=== PATIENT | male | born 1995 | race Caucasian/White ===

== ENCOUNTER 2017-07-07 01:06 | Emergency (ER) | payer SELFPAY ==
[2017-07-07 01:28] LABS: MUDS CUTOFF CONCENTRATIONS CUTOFF CONC BELOW:
[2017-07-07 01:40] LABS: BILIRUBIN,URINE NEGATIVE (NEGATIVE); GLUCOSE, URINE (UA) NEGATIVE (NEGATIVE); KETONES,URINE (UA) NEGATIVE (NEGATIVE); LEUKOCYTE ESTERASE, URINE NEGATIVE (NEGATIVE); NITRITE,URINE NEGATIVE (NEGATIVE); OCCULT BLOOD,URINE NEGATIVE (NEGATIVE); PROTEIN,URINE NEGATIVE (NEGATIVE); UROBILINOGEN,URINE 1 (NORMAL) E.U./dL (NORMAL)
[2017-07-07 01:41] LABS: CLARITY,URINE CLEAR (CLEAR)
[2017-07-07 01:42] LABS: BASOPHILS % (AUTO) 0.7 %; EOSINOPHILS # (AUTO) 0.1 10^3/uL (0.0-0.7); EOSINOPHILS % (AUTO) 1.4 %; HGB - HEMOGLOBIN 14.2 g/dL (14.0-18.0); LYMPHOCYTES % (AUTO) 45.1 %; MEAN CORPUSCULAR HEMOGLOBIN 28.4 pg (27.0-31.0); MEAN CORPUSCULAR HGB CONC 34.8 g/dL (32.0-36.0); MEAN CORPUSCULAR VOLUME 81.6 fL (80.0-94.0); MEAN PLATELET VOLUME 6.7 fL (7.4-11.4); MONOCYTES # (AUTO) 0.7 10^3/uL (0.0-1.0); MONOCYTES % (AUTO) 10.5 %; NEUTROPHILS # (AUTO) 2.8 10^3/uL (1.5-6.6); NEUTROPHILS % (AUTO) 42.3 %; PLT - PLATELET COUNT 281 10^3/uL (130-450); RED BLOOD COUNT 4.99 10^6/uL (4.70-6.10); RED CELL DISTRIBUTION WIDTH 12.7 % (12.0-15.0); WHITE BLOOD COUNT 6.7 x10^3/uL (4.8-10.8)
[2017-07-07 01:50] LABS: AMPHETAMINE SCREEN,URINE NEGATIVE (NEGATIVE); BENZODIAZEPINES SCREEN, URINE POSITIVE (NEGATIVE); COCAINE SCREEN URINE NEGATIVE (NEGATIVE); METHADONE SCREEN, URINE NEGATIVE (NEGATIVE); METHAMPHETAMINES SCREEN, URINE NEGATIVE (NEGATIVE); OPIATE SCREEN, URINE NEGATIVE (NEGATIVE); OXYCODONE SCREEN, URINE NEGATIVE (NEGATIVE); PROPOXYPHENE SCREEN, URINE NEGATIVE (NEGATIVE); TRICYCLIC ANTIDEPRESSANT,URINE POSITIVE (NEGATIVE)
[2017-07-07 01:53] LABS: ALBUMIN 4.8 g/dL (3.2-5.5); ALBUMIN/GLOBULIN RATIO 1.5 (1.0-2.2); ALKALINE PHOSPHATASE 62 IU/L (42-121); ALT ALANINE AMINOTRANSFERASE 20 IU/L (10-60); AST ASPARTATE AMINOTRANSFERASE 26 IU/L (10-42); BILIRUBIN,TOTAL 0.4 mg/dL (0.2-1.0); BUN - BLOOD UREA NITROGEN 17 mg/dL (6-20); CALCIUM 9.3 mg/dL (8.5-10.3); CARBON DIOXIDE - CO2 25 mmol/L (21-32); CHLORIDE 99 mmol/L (101-111); CREATININE 0.7 mg/dL (0.6-1.2); GFR - MDRD 141 (>89); GLUCOSE 89 mg/dL (70-100); LIPASE 14 U/L (22-51); SALICYLATE < 6.0 mg/dL; SODIUM 137 mmol/L (135-145); TOTAL PROTEIN 7.9 g/dL (6.7-8.2)
[2017-07-07 01:55] LABS: ACETAMINOPHEN < 10 ug/mL (10-30)
--- NOTE | 2017-07-07 02:43 | ED Physician Documentation ---
History of Present Illness - Stated complaint Stated Complaint: MHE - Chief complaint Chief Complaint: MHE - History obtained from History obtained from: Patient, Family - History of Present Illness Timing: Today - Additonal information Additional information: 21-year-old male with a history of chronic opiate use has previously been in treatment for alcohol and cannabis when he was a teenager. He has been using oxycodone up to 270 mg per day and he has been decreasing his dose and he is now down to 90 mg per day. He has been taking benzodiazepines in addition to the oxycodone to avert the symptoms of withdrawal. This evening he took 30 mg of oxycodone and a bit later took some Xanax. He has not taken Xanax in quite some time and he fell asleep sitting on the floor and he was not arousable by his brother. His family became concerned they were eventually able to get him awake and talk him into coming to the emergency department. The patient states that he is wanting some help with substance abuse. His mother indicates that he has bipolar disorder and she is concerned about overdose and continued substance abuse. She would like to see him in inpatient treatment.The patient denies any suicidal ideation he denies any attempt to overdose and he does admit to depression. He also admits that he took some Seroquel 2 nights ago. Review of Systems Constitutional: denies: Fever, Chills, Myalgias, Fatigue Eyes: denies: Decreased vision Ears: denies: Ear pain, Drainage/discharge Nose: denies: Rhinorrhea / runny nose, Congestion Throat: denies: Sore throat Cardiac: denies: Chest pain / pressure Respiratory: denies: Dyspnea, Cough GI: denies: Abdominal Pain, Nausea, Vomiting, Constipation, Diarrhea : denies: Dysuria, Frequency Skin: denies: Rash Musculoskeletal: denies: Neck pain, Back pain, Extremity pain Neurologic: denies: Generalized weakness, Focal weakness, Headache, Head injury PD PAST MEDICAL HISTORY - Past Medical History Past Medical History: Yes Other Past Medical History: Admitted of Opiod addiction - Past Surgical History Past Surgical History: No - Present Medications Home Medications: Ambulatory Orders Medication Instructions Recorded Confirmed cloNIDine [Catapres] 0.1 mg PO BID #30 tablet 07/07/17 - Allergies Allergies/Adverse Reactions: Allergies Allergy/AdvReac Type Severity Reaction Status Date / Time No Known Drug Allergies Allergy Verified 07/07/17 01:17 - Social History Does the pt smoke?: Yes Smoking Status: Current every day smoker Does the pt drink ETOH?: No Does the pt have substance abuse?: No - Immunizations Immunizations are current?: Yes - POLST Patient has POLST: No PD ED PE NORMAL - Vitals Vital signs reviewed: Yes (Hypertensive mild) - General General: Alert and oriented X 3, No acute distress, Well developed/nourished - HEENT HEENT: Atraumatic, PERRL, EOMI, Ears normal, Moist mucous membranes, Pharynx benign - Neck Neck: Supple, no meningeal sign, No bony TTP - Cardiac Cardiac: RRR, No murmur - Respiratory Respiratory: No respiratory distress, Clear bilaterally - Abdomen Abdomen: Soft, Non tender - Back Back: No CVA TTP, No spinal TTP - Derm Derm: Normal color, Warm and dry, No rash - Extremities Extremities: No deformity, No edema - Neuro Neuro: No motor deficit, No sensory deficit Eye Opening: Spontaneous Motor: Obeys Commands Verbal: Oriented GCS Score: 15 - Psych Psych: Normal mood, Normal affect Results - Vitals Vitals: Vital Signs - 24 hr 07/07/17 01:10 Temperature 36.5 C Heart Rate 98 Respiratory 18 Rate Blood Pressure 144/69 H O2 Saturation 99 Oxygen O2 Source Room air - Labs Labs: Laboratory Tests 07/07/17 07/07/17 07/07/17 01:21 01:30 01:30 WBC 6.7 RBC 4.99 Hgb 14.2 Hct 40.7 L MCV 81.6 MCH 28.4 MCHC 34.8 RDW 12.7 Plt Count 281 MPV 6.7 L Neut # 2.8 Lymph # 3.0 [place] # 0.7 Eos # 0.1 Baso # 0.0 Absolute Nucleated RBC 0.00 Nucleated RBC % 0.0 Sodium 137 Potassium 4.0 Chloride 99 L Carbon Dioxide 25 Anion Gap 13.0 BUN 17 Creatinine 0.7 Estimated GFR (MDRD) 141 Glucose 89 Calcium 9.3 Total Bilirubin 0.4 AST 26 ALT 20 Alkaline Phosphatase 62 Total Protein 7.9 Albumin 4.8 Globulin 3.1 Albumin/Globulin Ratio 1.5 Lipase 14 L Urine Color YELLOW Urine Clarity CLEAR Urine pH 6.0 Ur Specific [place] >=1.030 H Urine Protein NEGATIVE Urine Glucose (UA) NEGATIVE Urine Ketones NEGATIVE Urine Occult Blood NEGATIVE Urine Nitrite NEGATIVE Urine Bilirubin NEGATIVE Urine Urobilinogen 1 (NORMAL) Ur Leukocyte Esterase NEGATIVE Ur Microscopic Review NOT INDICATED Urine Culture Comments NOT INDICATED Salicylates < 6.0 Urine Opiates Screen NEGATIVE Ur Oxycodone Screen NEGATIVE Urine Methadone Screen NEGATIVE Ur Propoxyphene Screen NEGATIVE Acetaminophen < 10 L Ur Barbiturates Screen NEGATIVE Ur Tricyclics Screen POSITIVE H Ur Phencyclidine Scrn NEGATIVE Ur Amphetamine Screen NEGATIVE U Methamphetamines Scrn NEGATIVE U Benzodiazepines Scrn POSITIVE H Urine Cocaine Screen NEGATIVE U Cannabinoids Screen POSITIVE H Ethyl Alcohol < 5.0 PD MEDICAL DECISION MAKING - ED course Complexity details: reviewed old records, reviewed results, re-evaluated patient , considered differential, d/w patient, d/w family ED course: 21-year-old male who has narcotic addiction has been in previous treatment and is asking today for help. He does not want to stay in the emergency department overnight to talk to social work. He is willing to go to the clinic to attempt to get help there and indicates she will return to the emergency department if he is unable to get into the clinic. He denies any suicidal ideation and denies any self-harm. Departure - Departure Disposition: 01 Home, Self Care Clinical Impression: Substance abuse Condition: Stable Instructions: ED Drug Abuse General, ED Withdrawal Narcotic, ED Depression Follow-Up: [facility] [Provider Group] Prescriptions: cloNIDine [Catapres] 0.1 mg PO BID #30 tablet
[2017-07-07 02:52] VITALS: BP 132/65
== END 2017-07-07 02:52 | disposition home or self-care (01) ==
LOC: EEVIPCON 01:06 → ED 01:06
DX: F11.10 Opioid abuse, uncomplicated (principal); F17.200 Nicotine dependence, unspecified, uncomplicated
CPT/HCPCS: 80053; 80306; 80307; 80320; 80329; 81001; 81003; 83690; 85025; 87086; 99283; 99284

== ENCOUNTER 2017-07-22 19:35 | Outpatient (CLI) | payer OTHER | END 2017-07-22 19:36 | disposition home or self-care (01) | LOC: LAB 19:35 | PROVIDERS: ATTEND Pathology Blood Banking & Transfusion Medicine | DX: Z01.89 Encounter for other specified special examinations (principal) | CPT/HCPCS: 36415 ==

== ENCOUNTER 2017-12-19 13:40 | Outpatient (CLI) | payer MEDICAID | END 2017-12-19 13:41 | disposition critical access hospital (66) | LOC: EMS 13:40 | PROVIDERS: ATTEND Surgery | DX: R11.2 Nausea with vomiting, unspecified (principal) | CPT/HCPCS: A0425; A0427 ==

== ENCOUNTER 2017-12-19 14:00 | Emergency (ER) | payer MEDICAID ==
--- NOTE | 2017-12-19 14:16 | ED Physician Documentation ---
PD HPI ALTERED MENTAL STATUS - Stated complaint Stated Complaint: CONFUSION - Chief complaint Chief Complaint: Neuro - History obtained from History obtained from: Patient, EMS - History of Present Illness Timing - onset: Chronic Quality / character: Confused, Disoriented Associated symptoms: No: Fever, Headache, Stiff neck, Dyspnea Basline status: Alert and oriented X 3 - Additional information Additional information: Patient is a 21-year-old male with a long-standing history of polysubstance abuse including fentanyl, methadone, methamphetamines, amphetamines and marijuana. He apparently accidentally overdosed today at home and required a Narcan with EMS. He has been seen at [facility] on the and earlier this morning for same. They were trying to get him in to [facility], but no beds were available. He is currently awake and alert in the emergency department. He states that he last used methamphetamines last night. He denies any suicidal or homicidal ideation to me. Review of Systems Unable to obtain: Confused Constitutional: denies: Fever, Chills Ears: denies: Ear pain Nose: denies: Rhinorrhea / runny nose, Congestion GI: denies: Nausea, Vomiting, Diarrhea Skin: denies: Rash Musculoskeletal: denies: Neck pain, Back pain Neurologic: reports: Confused. denies: Focal weakness, Numbness, Headache PD PAST MEDICAL HISTORY - Past Medical History Past Medical History: No - Past Surgical History Past Surgical History: No - Present Medications Home Medications: Ambulatory Orders Medication Instructions Recorded Confirmed cloNIDine [Catapres] 0.1 mg PO BID #30 tablet 07/07/17 - Allergies Allergies/Adverse Reactions: Allergies Allergy/AdvReac Type Severity Reaction Status Date / Time No Known Drug Allergies Allergy Verified 12/19/17 14:10 - Living Situation Living Situation: reports: With family Living Arrangement: reports: At home - Social History Does the pt smoke?: Yes Smoking Status: Current every day smoker Does the pt drink ETOH?: No Does the pt have substance abuse?: Yes Substance Use and Type: Marijuana, Meth, Prescription Pills - Immunizations Immunizations are current?: Yes - POLST Patient has POLST: No PD ED PE NORMAL - Vitals Vital signs reviewed: Yes - General General: No acute distress, Well developed/nourished, Other (Alert, oriented to person and place only) - HEENT HEENT: PERRL, EOMI, Moist mucous membranes, Pharynx benign - Neck Neck: Supple, no meningeal sign, No bony TTP - Cardiac Cardiac: RRR, Strong equal pulses - Respiratory Respiratory: No respiratory distress, Clear bilaterally - Abdomen Abdomen: Soft, Non tender, Non distended - Back Back: No spinal TTP - Derm Derm: Warm and dry, No rash - Extremities Extremities: No edema, No calf tenderness / cord - Neuro Neuro: mammography technician 2-12 intact, No motor deficit, No sensory deficit, Normal speech Results - Vitals Vitals: Vital Signs - 24 hr 12/19/17 12/19/17 12/19/17 14:07 16:04 16:36 Temperature 37.9 C H Heart Rate 58 L 68 68 Respiratory 18 28 H 25 H Rate Blood Pressure 143/80 H 135/86 H 130/81 H O2 Saturation 100 100 100 12/19/17 12/19/17 12/19/17 18:27 19:36 21:14 Temperature 37.9 C H Heart Rate 63 68 59 L Respiratory 20 18 18 Rate Blood Pressure 130/76 118/61 115/64 O2 Saturation 100 100 Oxygen O2 Source Room air - EKG (time done) 1422 Rate: Rate (enter#) (62) Rhythm: NSR Ramsay: Normal Intervals: Normal SC Ischemia: Normal ST segments - Labs Labs: Laboratory Tests 12/19/17 12/19/17 12/19/17 14:34 14:34 15:00 WBC 7.4 RBC 5.09 Hgb 14.4 Hct 42.4 MCV 83.2 MCH 28.2 MCHC 33.9 RDW 13.1 Plt Count 355 MPV 6.7 L Neut # (Auto) 6.3 Lymph # (Auto) 0.7 L [place] # (Auto) 0.3 Eos # (Auto) 0.0 Baso # (Auto) 0.0 Absolute Nucleated RBC 0.00 Nucleated RBC % 0.0 Sodium 136 Potassium 3.7 Chloride 102 Carbon Dioxide 26 Anion Gap 8.0 BUN 15 Creatinine 0.7 Estimated GFR (MDRD) 141 Glucose 107 H Calcium 8.6 Total Bilirubin 0.9 AST 11 ALT 10 Alkaline Phosphatase 43 Total Protein 7.3 Albumin 4.1 Globulin 3.2 Albumin/Globulin Ratio 1.3 Lipase 22 Urine Color DARK YELLOW Urine Clarity CLEAR Urine pH 6.5 Ur Specific [place] 1.025 Urine Protein NEGATIVE Urine Glucose (UA) NEGATIVE Urine Ketones >=80 H Urine Occult Blood NEGATIVE Urine Nitrite NEGATIVE Urine Bilirubin NEGATIVE Urine Urobilinogen 0.2 (NORMAL) Ur Leukocyte Esterase NEGATIVE Ur Microscopic Review NOT INDICATED Urine Culture Comments NOT INDICATED Salicylates < 6.0 Urine Opiates Screen NEGATIVE Ur Oxycodone Screen NEGATIVE Urine Methadone Screen POSITIVE H Ur Propoxyphene Screen NEGATIVE Acetaminophen < 10 L Ur Barbiturates Screen NEGATIVE Ur Tricyclics Screen NEGATIVE Ur Phencyclidine Scrn NEGATIVE Ur Amphetamine Screen POSITIVE H U Methamphetamines Scrn NEGATIVE U Benzodiazepines Scrn NEGATIVE Urine Cocaine Screen NEGATIVE U Cannabinoids Screen POSITIVE H Ethyl Alcohol < 5.0 - Rads (name of study) head CT Radiology: Prelim report reviewed, EMP read contemporaneously, See rad report ( no acute abnormalities) PD MEDICAL DECISION MAKING - ED course Complexity details: reviewed old records, reviewed results, re-evaluated patient , considered differential, d/w patient, d/w product/industry consultant ED course: Patient is a 21-year-old male who presents to the emergency department with a suspected accidental drug overdose earlier today. He was seen at [facility] last night and this morning for same and also 2 nights ago. He is also profoundly altered in the emergency department. Is talking about the cat in a costume and waiting for it to change. He then thought that he was in [place]. His altered mental status did not change while he was in the emergency department. No evidence of trauma. Upon further review of his chart, it does appear that he has a history of bipolar disease and it is possible that his bipolar is now presenting with psychotic features. Discussed the case with the [facility] and the [facility] P will be dispatched. ALBERTO Vásquez, saw the patient and placed on invol hold. Craig will call back in the AM with a bed and accepting provider. They request him to be watched in the ED overnight for withdrawal symptoms. Patient signed out to Dr. Reese. This document was made in part using voice recognition software. While efforts are made to proofread this document, sound alike and grammatical errors may occur. - Sepsis Event Vital Signs: Vital Signs - 24 hr 12/19/17 12/19/17 12/19/17 14:07 16:04 16:36 Temperature 37.9 C H Heart Rate 58 L 68 68 Respiratory 18 28 H 25 H Rate Blood Pressure 143/80 H 135/86 H 130/81 H O2 Saturation 100 100 100 12/19/17 12/19/17 12/19/17 18:27 19:36 21:14 Temperature 37.9 C H Heart Rate 63 68 59 L Respiratory 20 18 18 Rate Blood Pressure 130/76 118/61 115/64 O2 Saturation 100 100 Oxygen O2 Source Room air Departure - Departure Disposition: 65 Psych Hosp/Unit DC/Xfer Clinical Impression: Polysubstance abuse Psychosis Qualifiers: Psychosis type: unspecified psychosis type Qualified Code(s): F29 - Unspecified psychosis not due to a substance or known physiological condition Bipolar disorder Qualifiers: Active/Remission status: remission status unspecified Qualified Code(s): F31.9 - Bipolar disorder, unspecified Condition: Stable
[2017-12-19] MEDS: SODIUM CHLORIDE 0.9% 1,000 ML IV ONE ×2 (14:30)
[2017-12-19 14:41] LABS: BASOPHILS % (AUTO) 0.3 %; HGB - HEMOGLOBIN 14.4 g/dL (14.0-18.0); LYMPHOCYTES # (AUTO) 0.7 10^3/uL (1.5-3.5); LYMPHOCYTES % (AUTO) 10.1 %; MEAN CORPUSCULAR HEMOGLOBIN 28.2 pg (27.0-31.0); MEAN CORPUSCULAR HGB CONC 33.9 g/dL (32.0-36.0); MEAN CORPUSCULAR VOLUME 83.2 fL (80.0-94.0); MEAN PLATELET VOLUME 6.7 fL (7.4-11.4); MONOCYTES # (AUTO) 0.3 10^3/uL (0.0-1.0); MONOCYTES % (AUTO) 4.4 %; NEUTROPHILS # (AUTO) 6.3 10^3/uL (1.5-6.6); NEUTROPHILS % (AUTO) 85.2 %; PLT - PLATELET COUNT 355 10^3/uL (130-450); RED BLOOD COUNT 5.09 10^6/uL (4.70-6.10); RED CELL DISTRIBUTION WIDTH 13.1 % (12.0-15.0); WHITE BLOOD COUNT 7.4 x10^3/uL (4.8-10.8)
[2017-12-19 14:57] LABS: ALBUMIN 4.1 g/dL (3.2-5.5); ALBUMIN/GLOBULIN RATIO 1.3 (1.0-2.2); ALKALINE PHOSPHATASE 43 IU/L (42-121); ALT ALANINE AMINOTRANSFERASE 10 IU/L (10-60); AST ASPARTATE AMINOTRANSFERASE 11 IU/L (10-42); BILIRUBIN,TOTAL 0.9 mg/dL (0.2-1.0); BUN - BLOOD UREA NITROGEN 15 mg/dL (6-20); CALCIUM 8.6 mg/dL (8.5-10.3); CARBON DIOXIDE - CO2 26 mmol/L (21-32); CHLORIDE 102 mmol/L (101-111); CREATININE 0.7 mg/dL (0.6-1.2); GFR - MDRD 141 (>89); GLUCOSE 107 mg/dL (70-100); LIPASE 22 U/L (22-51); SALICYLATE < 6.0 mg/dL; SODIUM 136 mmol/L (135-145); TOTAL PROTEIN 7.3 g/dL (6.7-8.2)
[2017-12-19 15:02] LABS: ACETAMINOPHEN < 10 ug/mL (10-30)
[2017-12-19 15:06] LABS: GLUCOSE, URINE (UA) NEGATIVE (NEGATIVE); KETONES,URINE (UA) >=80 mg/dL (NEGATIVE); LEUKOCYTE ESTERASE, URINE NEGATIVE (NEGATIVE); MUDS CUTOFF CONCENTRATIONS CUTOFF CONC BELOW:; NITRITE,URINE NEGATIVE (NEGATIVE); OCCULT BLOOD,URINE NEGATIVE (NEGATIVE); PH,URINE 6.5 PH (5.0-7.5); PROTEIN,URINE NEGATIVE (NEGATIVE); UROBILINOGEN,URINE 0.2 (NORMAL) E.U./dL (NORMAL)
[2017-12-19 15:11] LABS: BILIRUBIN,URINE NEGATIVE (NEGATIVE); CLARITY,URINE CLEAR (CLEAR); ICTOTEST,URINE NEGATIVE
[2017-12-19 15:17] LABS: AMPHETAMINE SCREEN,URINE POSITIVE (NEGATIVE); BENZODIAZEPINES SCREEN, URINE NEGATIVE (NEGATIVE); COCAINE SCREEN URINE NEGATIVE (NEGATIVE); METHADONE SCREEN, URINE POSITIVE (NEGATIVE); METHAMPHETAMINES SCREEN, URINE NEGATIVE (NEGATIVE); OPIATE SCREEN, URINE NEGATIVE (NEGATIVE); OXYCODONE SCREEN, URINE NEGATIVE (NEGATIVE); PROPOXYPHENE SCREEN, URINE NEGATIVE (NEGATIVE); TRICYCLIC ANTIDEPRESSANT,URINE NEGATIVE (NEGATIVE)
[2017-12-19] MEDS: ONDANSETRON ODT 4 MG TABLET TL STA (18:25)
--- NOTE | 2017-12-19 23:49 | CT Report ---
Procedure Date: 12/19/2017 Accession Number: [id number] / [id number] Procedure: CT - Head W/O CPT Code: FULL RESULT: EXAM: CT HEAD EXAM DATE: 12/19/2017 11:38 PM. CLINICAL HISTORY: Altered mental status. COMPARISON: None. TECHNIQUE: Multiaxial CT images were obtained from the foramen magnum to the vertex. Reformats: Coronal. IV contrast: None. In accordance with CT protocol optimization, one or more of the following dose reduction techniques were utilized for this exam: automated exposure control, adjustment of mA and/or KV based on patient size, or use of iterative reconstructive technique. FINDINGS: Parenchyma: No intraparenchymal hemorrhage. No evidence of mass, midline shift, or CT findings of infarction. Pena-white differentiation is distinct. Extraaxial Spaces: Normal for age. No subdural or epidural collections identified. Ventricles: Normal in size and position. Sinuses and Orbits: Imaged paranasal sinuses, orbits, and mastoids show no significant abnormality. Bones: No evidence of fracture or calvarial defect. Other: None. IMPRESSION: Normal head CT. RADIA
[2017-12-20 14:41] VITALS: BP 139/84
== END 2017-12-20 14:40 ==
LOC: EDBD → EDSEX → EDUNIT# → ED 14:00
DX: F29 Unspecified psychosis not due to a substance or known physiological condition (principal); F15.10 Other stimulant abuse, uncomplicated; F31.9 Bipolar disorder, unspecified; F17.200 Nicotine dependence, unspecified, uncomplicated
CPT/HCPCS: 36415; 70450; 80053; 80306; 80307; 80320; 80329; 81001; 81003; 83690; 85025; 87086; 93005; 96360; 96361; 99284; 99285

== ENCOUNTER 2021-06-02 19:02 | Outpatient (CLI) | payer SELFPAY ==
--- NOTE | 2021-06-02 22:14 | XRAY Report ---
PROCEDURE: Forearm RT INDICATIONS: RIGHT ELOBOW/FOREARM PAIN S/P FALL OFF SKATEBOARD TECHNIQUE: 2 views of the forearm were acquired. COMPARISON: None FINDINGS: Bones: No fractures or dislocations. No suspicious bony lesions. Soft tissues: No suspicious soft tissue calcifications or masses. IMPRESSION: No no gross acute forearm fracture or dislocation is seen. Reviewed by: Chuck Dewitt MD on 06/02/2021 10:13 PM [facility] Approved by: Chuck Dewitt MD on 06/02/2021 10:13 PM [facility] Station ID: [id number]
== END 2021-06-02 23:59 | disposition home or self-care (01) ==
LOC: DI.N 19:02 → EEVIPCON 19:02 → DI.N 23:59
PROVIDERS: ATTEND Physician Assistant
DX: S40.029A Contusion of unspecified upper arm, initial encounter (principal)

== ENCOUNTER 2021-08-05 14:28 | Outpatient (CLI) | payer SELFPAY ==
--- NOTE | 2021-08-05 15:37 | XRAY Report ---
PROCEDURE: Knee 3 View LT INDICATIONS: Knee joint pain TECHNIQUE: 3 views of the left knee(s) were acquired. COMPARISON: None. FINDINGS: Nonspecific soft tissue swelling distal thigh above the knee joint. No knee joint effusion. Osseous s tructures intact and without acute finding. No significant degenerative changes. IMPRESSION: No acute bone finding. No significant degenerative change. Nonspecific soft tissue swell ing superior and lateral to the right patella. This may represent hematoma although there are other d ifferential considerations. Cross-sectional imaging such as CT or MRI would be recommended for furthe r evaluation. Reviewed by: Dung Devine MD on 08/05/2021 3:36 PM PST Approved by: Dung Devine MD on 08/05/2021 3:36 PM PST Station ID: [id number]
== END 2021-08-05 23:59 | disposition home or self-care (01) ==
LOC: DI.N 14:28
PROVIDERS: ATTEND Family Medicine
DX: R93.6 Abnormal findings on diagnostic imaging of limbs (principal); R93.89 Abnormal findings on diagnostic imaging of other specified body structures

== ENCOUNTER 2021-09-18 00:07 | Emergency (ER) | payer OTHER ==
[2021-09-18 00:16] VITALS: BP 117/74
--- NOTE | 2021-09-18 00:24 | ED Physician Documentation ---
History of Present Illness - Stated complaint Stated Complaint: FIT - Chief complaint Chief Complaint: General - History obtained from History obtained from: Patient, Police - Additonal information Additional information: Patient with no significant past medical history presenting for evaluation for fit for confinement. Per police, Praveen used opiates this evening. He was evaluated by paramedics and cleared but gel has also requested evaluation in the emergency department. He has been in police custody for over an hour. There was no accident or trauma. Patient has no complaints. Per Ultrasound Coordinator he has been ambulatory on his own, not lethargic Or difficult to awaken. Review of Systems Constitutional: denies: Fever Nose: denies: Congestion Cardiac: denies: Chest pain / pressure Respiratory: denies: Dyspnea, Cough GI: denies: Abdominal Pain Skin: denies: Rash Musculoskeletal: denies: Back pain Neurologic: denies: Headache, Head injury PD PAST MEDICAL HISTORY - Past Medical History Psych: Bipolar disorder - Past Surgical History Past Surgical History: No - Present Medications Home Medications: Ambulatory Orders Medication Instructions Recorded Confirmed No Known Home Medications 09/18/21 09/18/21 - Allergies Allergies/Adverse Reactions: Allergies Allergy/AdvReac Type Severity Reaction Status Date / Time No Known Drug Allergies Allergy Verified 09/18/21 00:13 - Social History Does the pt smoke?: Yes Smoking Status: Current every day smoker Does the pt drink ETOH?: No Does the pt have substance abuse?: Yes - Immunizations Immunizations are current?: Yes - POLST Patient has POLST: No PD ED PE NORMAL - General General: Alert and oriented X 3, No acute distress, Well developed/nourished - HEENT HEENT: Atraumatic, Moist mucous membranes - Neck Neck: Supple, no meningeal sign - Cardiac Cardiac: RRR, No murmur, Strong equal pulses - Respiratory Respiratory: No respiratory distress, Clear bilaterally - Abdomen Abdomen: Normal bowel sounds, Soft, Non tender - Back Back: No spinal TTP - Derm Derm: Normal color, Warm and dry - Extremities Extremities: No tenderness to palpate, No edema - Neuro Neuro: Alert and oriented X 3, No motor deficit, Normal speech, Other (Normal unassisted gait) Eye Opening: Spontaneous Motor: Obeys Commands Verbal: Oriented GCS Score: 15 - Psych Psych: Normal mood, Normal affect Results - Vitals Vitals: Vital Signs - 24 hr 09/18/21 00:07 Temperature 36.9 C Heart Rate 74 Respiratory 16 Rate Blood Pressure 117/74 O2 Saturation 100 Oxygen O2 Source Room air PD MEDICAL DECISION MAKING - ED course ED course: Patient evaluated for a fit for confinement Due to concerns for recent opiate use. Per police or and a patient there was no reported trauma or MVC. Upon my evaluation, his vital signs are stable. He exhibits no signs of lethargy, oversedation, respiratory compromise.Patient is without complaints. Appears stable for confinement. Departure - Departure Disposition: 01 Home, Self Care Clinical Impression: Encounter for medical assessment Condition: Stable Instructions: ED Screening Exam Medical Nonurgent Comments: Your evaluated in the emergency department tonight. You had no complaints or concerns. Your vital signs were stable. There is no emergent medical condition identified.Please return to the emergency department with any concerns. Discharge Date/Time: 09/18/21 00:29
== END 2021-09-18 00:29 | disposition home or self-care (01) ==
LOC: EDUNIT# → ED 00:07
DX: Z02.89 Encounter for other administrative examinations (principal); F17.200 Nicotine dependence, unspecified, uncomplicated
CPT/HCPCS: 99281

== ENCOUNTER 2023-08-16 09:04 | Outpatient (CLI) | payer MEDICAID | END 2023-08-16 23:59 | disposition critical access hospital (66) | LOC: EMS 09:04 | DX: T40.411A Poisoning by fentanyl or fentanyl analogs, accidental (unintentional), initial encounter (principal) | CPT/HCPCS: A0425; A0429; A0999 ==

== ENCOUNTER 2023-08-16 09:25 | Emergency (ER) | payer MEDICAID ==
[2023-08-16] MEDS: NALOXONE 0.4 MG/ML VIAL IVP STA (09:48)
--- NOTE | 2023-08-16 12:06 | ED Physician Documentation ---
History of Present Illness - Stated complaint Stated Complaint: OVERDOSE - Chief complaint Chief Complaint: Resp - History obtained from History obtained from: Patient, EMS - Additonal information Additional information: The patient comes to the emergency department chief complaint of fentanyl overdose. The patient has a history of fentanyl abuse but was clean until about 6 months ago when he relapsed. The patient has PTSD and states that feels this drives his drug abuse. Patient states he normally snorts about 4 pills of fentanyl on a daily basis, but this morning he did 5 over the course of a couple hours. The patient began to get increasingly drowsy, and family noticed that he was unresponsive. Sister did CPR and called EMS. When EMS arrived, the patient had already awakened and remained so throughout his transport, with only mild drowsiness, so they did not give Narcan. The patient has been hemodynamically stable since. Medics do note that when the patient occasionally dozes off, his oxygen saturations drop to the upper 80's. The patient denies any recent illnesses. No shortness of breath or chest pain. He has not been coughing. No other complaints at this time. He denies using any other drugs or alcohol. PD PAST MEDICAL HISTORY - Past Medical History Psych: Bipolar disorder - Past Surgical History Past Surgical History: No - Present Medications Home Medications: Ambulatory Orders Medication Instructions Recorded Confirmed No Known Home Medications 09/18/21 08/16/23 - Allergies Allergies/Adverse Reactions: Allergies Allergy/AdvReac Type Severity Reaction Status Date / Time No Known Drug Allergies Allergy Verified 08/16/23 09:44 - Social History Does the pt smoke?: Yes Smoking Status: Current every day smoker Does the pt drink ETOH?: No Does the pt have substance abuse?: Yes - Immunizations Immunizations are current?: Yes - POLST Patient has POLST: No PD ED PE NORMAL - Vitals Vital signs reviewed: Yes - General General: Alert and oriented X 3 (Alert when aroused, but nods off occasionally.), No acute distress, Well developed/nourished - HEENT HEENT: Atraumatic, PERRL, EOMI, Moist mucous membranes - Neck Neck: Supple, no meningeal sign - Cardiac Cardiac: RRR, No murmur, Strong equal pulses - Respiratory Respiratory: No respiratory distress, Clear bilaterally - Abdomen Abdomen: Soft, Non tender, Non distended - Derm Derm: Normal color, Warm and dry, No rash - Extremities Extremities: No deformity, No edema - Neuro Neuro: Alert and oriented X 3 - Psych Psych: Normal mood, Normal affect Results - Vitals Vitals: Oxygen O2 Source Room air PD Medical Decision Making - ED course Complexity details: considered differential, d/w patient, d/w family ED course: The pt was awake, but drowsy, and was placed on the monitor. When he would doze off, his sats would drop to the upper 80's, and I did order a dose of Narcan for him. He was no longer drowsy after this, and remained stable for nearly 3 hours. Mom had arrived, and I spoke with her and the patient. Mom wanted the pt to go to rehab, but pt was adamant that he would like to try getting clean a gain on his own, first. Mom requested some mental health resources, and I did provide these. Pt states he already has a list of detox and rehab facilities, and just needs to call them if he's interested. I felt he was stable for d/c home, and we have discussed the usual indications for return. Departure - Departure Disposition: 01 Home, Self Care Clinical Impression: Opioid abuse Accidental fentanyl overdose Qualifiers: Encounter type: initial encounter Qualified Code(s): T40.411A - Poisoning by fentanyl or fentanyl analogs, accidental (unintentional), initial encounter Condition: Stable Instructions: ED Narcotic Abuse, ED Overdose Accidental Comments: You were given a dose of Narcan in the emergency department, shortly after arrival here. While you were easily arousable and able to carry on a coherent conversation, you are having some shallow breathing when he would fall asleep and this is why we went ahead and gave you the Narcan. At this point in time, the Narcan has worn off and you have been very stable. Nausea and headache is not unusual when opioids in your system are reversed, and this should wear off on its own. We have discussed the possibility of getting help with the drug use though for now, you would like to try to do this on your own. Please consider looking into the resources you have for this if you feel he needed further help. As far as the mental health follow-up here are a few options locally, in addition to the information she been given from the ED: One option is [facility] in [place]. They have multiple providers who can see you and determine how best to help. Among the things that they treat is PTSD. Their phone number is [phone], and they are located at [address], [address]. Another option is [facility], the wellness center that is sponsored by the [facility]. They take walk-in clients Sunday through Sunday and all community members are welcome. They do suggest that you get there when the doors open at 5:30 in the morning and bring a picture ID. You do not need an income to use their services, nor do you need to be a native member. They work with patients needing help with both substance abuse and with mental health issues. They are a very good resource and most definitely worth looking into. Their phone number is [phone]. They are located [address] in [place]. Forms: PCP List Discharge Date/Time: 08/16/23 12:41
[2023-08-16 12:39] VITALS: BP 110/60; O2SAT 96
== END 2023-08-16 12:41 | disposition home or self-care (01) ==
LOC: EDUNIT# → EDBD → ED 09:25
DX: T40.411A Poisoning by fentanyl or fentanyl analogs, accidental (unintentional), initial encounter (principal); F11.10 Opioid abuse, uncomplicated; Y92.9 Unspecified place or not applicable; F17.200 Nicotine dependence, unspecified, uncomplicated
CPT/HCPCS: 96374; 99284